=== PATIENT | female | born 2000 | race Caucasian/White ===

== ENCOUNTER 2024-01-05 16:38 | Emergency (ER) | payer MEDICAID, SELFPAY ==
[2024-01-05 16:40] VITALS: BP 145/79; PULSE 96; RESP 22; TEMP 37.1; O2SAT 98; BMI 43.2
--- NOTE | 2024-01-05 16:54 | EKG12_ITS ---
Test Reason : CP Blood Pressure : / mmHG Vent. Rate : 105 BPM Atrial Rate : 105 BPM P-R Int : 128 ms QRS Dur : 088 ms QT Int : 328 ms P-R-T Axes : 029 045 027 degrees QTc Int : 433 ms Sinus tachycardia Otherwise normal ECG Confirmed by SARAH ROJAS, DESIRAE ([id number]), offline editor JOSIAH RODRIGUEZ ([id number]) on 01/06/2024 2:12:52 PM Referred By: Confirmed By:DESIRAE SMITH MD
--- NOTE | 2024-01-05 17:01 | EX.ED.DYSGE1 ---
HPI History of Present Illness Chief Complaint: Syncope Informant: patient Onset/Context/Timing Onset: Today Narrative Narrative: Patient presents secondary to chest pain and syncope. She states several hours ago she started getting some chest achiness. She was driving to work and about 10 minutes away when she felt the pain was getting worse. She states she started breathing rather quickly. She went to work and was able to park her car. She was talking to her and reportedly had a brief syncopal episode. She states she was breathing quickly and her hands felt cold. When she came to in the car she still had some chest pressure. She walked into work to talk to her boss but states with exertion she got worsened pain and became lightheaded. She was able to sit in a chair just inside the door and staff numbers called EMS. She states that she is adopted and does not know her family history. She has had some intermittent chest heaviness like this in the past but never had a syncopal episode with it. [facility] Medical History Asthma PCOS (polycystic ovarian syndrome) Type 2 diabetes mellitus Allergy/AdvReac Type Severity Reaction Status Date / Time No Known Allergies Allergy Verified 01/05/24 16:39 Social History Smoking Status: Never smoker ROS ROS ED Constitutional Constitutional ED: Denies chills or fever(s) ENT ENT ED: Denies rhinorrhea or sore throat Cardiovascular Cardiovascular: Reports chest pain; Denies palpitations Respiratory/Chest Respiratory/Chest: Reports dyspnea; Denies cough Gastrointestinal Gastrointestinal: Denies abdominal pain, nausea or vomiting Genitourinary Genitourinary ED: Denies dysuria Musculoskeletal Musculoskeletal: Denies back pain or extremity pain Integumentary Denies Abrasions or rash Neurologic Neurologic: Denies headache(s) or weakness Psychiatric Psychiatric: Denies anxiety or depression Allergic/Immunologic Allergic/Immunologic ED: Denies lip swelling or urticaria EXAM Physical Exam Const Vital Signs: 01/05/24 16:40 01/05/24 18:23 01/05/24 19:00 Temperature 98.8 F 97.5 F L Temperature Source Oral Oral Pulse Rate 96 94 89 Respiratory Rate 22 H 19 H 20 H Blood Pressure 145/79 H 113/73 107/88 H Blood Pressure Mean 101 86 94 Pulse Ox 98 98 97 Oxygen Delivery Method Room Air 01/05/24 20:00 Temperature Temperature Source Pulse Rate 92 Respiratory Rate 20 H Blood Pressure 119/83 H Blood Pressure Mean 95 Pulse Ox 95 Oxygen Delivery Method Positive well nourished and well developed General Appearance ED: well developed HEENT Reports moist mucous membranes Eyes EOMs intact bilaterally Chest Wall inspection of chest normal and palpation of chest normal Resp normal respiratory effort and clear to auscultation bilaterally Cardio regular rhythm Rate: other Other Details: Heart rate ranging from the mid 90s to low 100s during my exam. 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 IV line initiated. Labwork obtained to evaluate for leukocytosis, anemia, and electrolyte derangement. EKG obtained to evaluate for cardiac arrhythmia/ischemia. Chest x-ray obtained to evaluate for acute lung pathology, cardiac size, or mediastinal abnormality. History & Record Review Discussion w/independent historian: Patient Lab Data Attestation: I reviewed the patient's lab results. Labs: Laboratory Results - last 24 hr 01/05/24 01/05/24 01/05/24 16:52 17:04 19:15 WBC 10.7 RBC 4.58 Hgb 9.9 L Hct 33.7 L MCV 73.6 L MCH 21.6 L MCHC 29.4 L RDW Std Deviation 41.9 RDW Coeff of Yvonne 15.8 H Plt Count 417 MPV 8.5 Immature Gran % (Auto) 0.400 Neut % (Auto) 72.4 H Lymph % (Auto) 21.9 Caroline % (Auto) 3.5 Eos % (Auto) 1.6 Baso % (Auto) 0.2 Absolute Neuts (auto) 7.8 H Absolute Lymphs (auto) 2.35 Nucleated RBC % 0 D-Dimer Quant (PE/DVT) < 0.27 L Sodium 137 Potassium 4.0 Chloride 108 H Carbon Dioxide 23.0 Anion Gap 6 BUN 12 Creatinine 0.78 Estim Creat Clear Calc 145.38 Est GFR (MDRD) Af Amer 118 Est GFR (MDRD) Non-Af 97 BUN/Creatinine Ratio 15.4 Glucose 171 H Calcium 9.6 Troponin I High Sens < 3 L < 3 L Serum , Qual NEGATIVE Radiography Chest X-Ray - ED: 1 View, Read by ED Physician, Normal, Heart, Lungs and Mediastinum Diagnostic Testing: Clinical Impression(s) from Imaging Studies Chest X-Ray 01/05/24 17:16 IMPRESSION: Questionable small focal right basilar infiltrate. Electronically Signed: Willi Blanchard at 18:06 EDT Reading Location ID and State: [id number] / [place] Tel [phone], Service support , EKG Initial EKG: Attestation: I personally reviewed and interpreted this EKG as follows: Interpretation: Sinus Tachycardia (Sinus tach at 105. No acute ischemia.) Treatment and Re-Evaluation :: CBC was normal white count with hemoglobin of 9.9. Platelet count is normal. Differential unremarkable. D-dimer is less than 0.27. Chemistry studies are unremarkable other than a glucose of 171. Initial troponin is less than 3 with 2-hour repeat troponin also less than 3. test negative. Portable chest x-ray per my interpretation reveals no acute abnormalities. Radiology interpretation is reviewed. They question whether she may have a small right basilar infiltrate. Patient has no cough, congestion, or symptoms consistent with pneumonia. EKG is sinus rhythm with no evidence of ischemia. Patient has not had any evidence of arrhythmia on the monitor. From her description, I do believe she was hyperventilating and had a brief syncopal episode. She does report a known history of anemia and I did encourage her to follow-up with her doctor to make sure this is stable. Patient and family at bedside are comfortable with discharge. Return instructions given. Discharge Plan Triage Chief Complaint: Syncope ED Provider: Angy Mahmood Dx/Rx/DC Orders Clinical Impression: Syncope Instructions: Anemia, ED Fainting, Uncertain Cause Primary Care Provider: PATIRCIA BALTAZAR Referrals: PATRICIA BALTAZAR [Other] - 1-2 Weeks Print Language: Latvian Disposition Disposition: Home, Self Care
[2024-01-05] MEDS: 0.9% Normal Saline (1000mL) 1,000 ML 150 ML IV (17:03)
[2024-01-05 17:10] LABS: Absolute Lymphocyte Count 2.35 X10^3/uL (0.83-4.51); Absolute Neutrophil Count 7.8 X10^3/uL (2.0-7.7); Basophil# 0.02 X10^3/uL; Basophil% 0.2 % (0-1); Eosinophil# 0.17 X10^3/uL; Eosinophils% 1.6 % (0-5); Hematocrit 33.7 % (37-47); Hemoglobin 9.9 g/dL (12.0-15.0); Lymphocyte # 2.35 X10^3/ul (0.83-4.51); Lymphocyte % 21.9 % (19-41); Mean Corp Hgb Conc 29.4 g/dL (32-36); Mean Corpuscular Hgb 21.6 pg (27.0-32.0); Mean Corpuscular Volume 73.6 fL (81-99); Mean Platelet Vol. 8.5 fl (6.2-12.0); Monocyte# 0.38 X10^3/uL; Monocyte% 3.5 % (0-10); NRBC Flagged by Analyzer 0 % (0-5); Neutrophil # 7.78 X10^3/uL (2.7-7.7); Neutrophil % 72.4 % (47-70); Platelet Count 417 K/mm3 (150-450); RBC Distribution Width CV 15.8 % (11.6-14.6); RBC Distribution Width SD 41.9 fl (35.1-43.9); Red Blood Count 4.58 M/mm3 (4.2-5.4); White Blood Count 10.7 K/mm3 (4.4-11.0)
--- NOTE | 2024-01-05 17:16 | RAD_ITS ---
INDICATION: cp EXAMINATION/TECHNIQUE: X-RAY - XR Chest 1 View COMPARISON: FINDINGS: LINES/DEVICES: None. LUNGS: Questionable small focal right basilar infiltrate. No pneumothorax. MEDIASTINUM AND CARDIOVASCULAR STRUCTURES: Cardiac silhouette not enlarged. Central airways and mediastinal contour are unremarkable. BONES AND SOFT TISSUES: Unremarkable. RAD/Chest 1 View (Portable) IMPRESSION: Questionable small focal right basilar infiltrate. Electronically Signed: Willi Blanchard DO at 18:06 EDT Reading Location ID and State: [facility] / [place] Tel [phone], Service support ,
[2024-01-05 17:32] LABS: Anion Gap 6 (5-15); BUN 12 mg/dL (7-18); BUN/Creat Ratio 15.4 RATIO (10-20); Calcium,Total 9.6 mg/dL (8.5-10.1); Chloride 108 mmol/L (98-107); Creatinine, Serum 0.78 mg/dL (0.55-1.02); EST Glomerular Filtration Rate 97 mL/min (>60); Est Glom Filt Rate - Afr Amer 118 mL/min (>60); Estimated Creatinine Clearance 145.38 ml/min; Glucose 171 mg/dL (74-106); Internal QC Validated? YES +Cl - CLEAR BKGD; Pregnancy, Serum, hCG Quali. NEGATIVE Negative; Sodium Level 137 mmol/L (136-145); Troponin-I HS (w/2H Reflex) < 3 pg/mL (3.0-54.0)
[2024-01-05 17:33] LABS: D-Dimer Quantitative (DVT/PE) < 0.27 FEU/ug/m (0.27-0.49)
[2024-01-05 18:23] VITALS: BP 113/73; PULSE 94; RESP 19; TEMP 36.4; O2SAT 98
[2024-01-05 19:00] VITALS: BP 107/88; PULSE 89; RESP 20; O2SAT 97
[2024-01-05 19:03] LABS: Reflex Troponin-HS? (from REC) Y
[2024-01-05 20:00] VITALS: BP 119/83; PULSE 92; RESP 20; O2SAT 95
[2024-01-05 20:01] LABS: Troponin-I HS < 3 pg/mL (3.0-54.0)
[2024-01-05 20:48] VITALS: BP 113/73; PULSE 98; RESP 23; TEMP 37.1; O2SAT 97
== END 2024-01-05 20:50 | disposition home or self-care (01) ==
PROVIDERS: Emergency Provider Emergency Medicine; Visit Provider Emergency Medicine
DX: R55 Syncope and collapse (principal); E11.9 Type 2 diabetes mellitus without complications; J45.909 Unspecified asthma, uncomplicated
CPT/HCPCS: 71045; 80048; 84484; 84703; 85025; 85379; 93005; 99284

== ENCOUNTER 2024-04-06 09:29 | Emergency (ER) | payer MEDICAID, SELFPAY ==
[2024-04-06 09:31] VITALS: BP 130/97; PULSE 112; RESP 20; TEMP 35.8; O2SAT 100; BMI 42.5
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
[2024-04-06 11:21] VITALS: BP 119/86; PULSE 79; RESP 19; TEMP 36.7; O2SAT 98
== END 2024-04-06 11:21 | disposition home or self-care (01) ==
PROVIDERS: Emergency Provider Emergency Medicine; Visit Provider Emergency Medicine
DX: S16.1XXA Strain of muscle, fascia and tendon at neck level, initial encounter (principal); E11.9 Type 2 diabetes mellitus without complications; S29.011A Strain of muscle and tendon of front wall of thorax, initial encounter; S39.012A Strain of muscle, fascia and tendon of lower back, initial encounter; J45.909 Unspecified asthma, uncomplicated; V89.2XXA Person injured in unspecified motor-vehicle accident, traffic, initial encounter
CPT/HCPCS: 71046; 72040; 72100; 99282

== ENCOUNTER 2024-12-10 15:12 | Emergency (ER) | payer MEDICAID, SELFPAY ==
[2024-12-10 15:12] VITALS: BP 139/94; PULSE 86; RESP 18; TEMP 36.8; O2SAT 98; BMI 42.1
--- NOTE | 2024-12-10 15:18 | EX.ED.DYSGE1 ---
HPI History of Present Illness Chief Complaint: Abd Pain [facility] Medical History Asthma PCOS (polycystic ovarian syndrome) Type 2 diabetes mellitus Home Medications ?Medication ?Instructions ?Recorded ?Last Taken ?Type cyclobenzaprine 10 mg tablet 10 mg PO TID PRN Muscle Spasm #20 04/06/24 Unknown Rx TABLETS ondansetron 4 mg disintegrating 4 mg PO Q8H PRN PRN Nausea #10 tabs 12/10/24 Unknown Rx tablet Allergy/AdvReac Type Severity Reaction Status Date / Time No Known Allergies Allergy Verified 12/10/24 15:14 Social History Smoking Status: Never smoker EXAM Physical Exam Const Vital Signs: 12/10/24 15:12 Temperature 98.2 F Temperature Source Oral Pulse Rate 86 Respiratory Rate 18 Blood Pressure 139/94 H Blood Pressure Mean 109 Pulse Ox 98 Oxygen Delivery Method Room Air MDM MDM MDM Narrative Medical decision making narrative: HISTORY OF PRESENT ILLNESS: Chief complaint: Abdominal pain 24-year-old female with past medical history significant for type 2 diabetes, PCOS no significant past surgical history of the abdomen presents with abdominal pain. She notes nausea and generalized abdominal discomfort that started this morning. Associated call of work. Show she feels better now. She was going to urgent care for work excuse however they sent her here instead. Patient denies any current symptoms. Denies any nausea or abdominal pain. Notes this morning she had pain in her lower belly for approximate 1 hour. Denies syncope. Denies trouble urinating. Denies urinary frequency, urgency, hematuria. Denies diarrhea, constipation. Denies history of abdominal surgeries. Denies fevers. REVIEW OF SYSTEMS: Pertinent positives: Abdominal pain, nausea Pertinent negatives: Fever, urinary symptoms PHYSICAL EXAM: Nursing triage notes reviewed, Vital signs reviewed Constitutional: please see mdm HENT: MMM Eyes: Pupils equal round and reactive to light, Extraocular muscles intact Neck: No stridor, no JVD, full neck ROM Lungs: Clear to auscultation, No wheezing or rales. No increased work of breathing, no conversational dyspnea, no accessory muscle use, no nasal flaring. No respiratory distress noted Heart: Regular rate and rhythm, No murmurs, No rubs and No gallops, 2+ distal pulses (radial, femoral, posterior tibial) in all extremities Abdomen: Soft, there is no tenderness, rigidity, rebound or guarding, no obvious peritoneal signs, no palpable pulsatile abdominal masses, no auscultated abdominal bruit : No CVAT Extremities: No edema Neuro: No new focal neurological deficits, cranial nerves II through XII intact, 5/5 strength in all present extremities. Intact sensation to light touch in all present extremities, 2+ reflexes bilateral patella tendons. Skin: No rash or lesions noted MEDICAL DECISION MAKING: Chief Complaint: please see HPI External records reviewed: Reviewed prior imaging studies Factors affecting care: none Social determinants of health: Patient denies alcohol or illicit drug History obtained from others: none Consults: none MDM Narrative: The patient was initially hemodynamically stable, afebrile nontoxic-appearing. Exam unremarkable. No peritoneal signs. Patient is in no acute distress. I considered the following differential diagnosis: AAA, small bowel obstruction, abdominal perforation, appendicitis, pancreatitis, hepatobiliary pathology (acute cholecystitis), mesenteric ischemia, pathology (ie nephrolithiasis, pyelonephritis). I offered the patient labs and potentially imaging studies to further elucidate etiology of the patient's complaints. Patient was alert and orient x 3 and had capacity to make own medical decisions and chose to forego additional labs images at this time stating she has a doctor appointment on Friday, she does not feel any symptoms at this time and does not think it is warranted. Patient's exam and vitals are benign and I generally agree with her in this regard. She is discharged stable addition with close PCP follow-up. Strict return precaution were discussed. Zofran was prescribed and given here in the ED. The patient and/or family, caregivers express understanding. The patient and/or family, caregivers agrees with the plan. Shared decision making: I will have a discussion with the patient and or visitors regarding risk/benefits of further testing or admission. They will be made aware of of the risk/benefits inherent in this decision they will be given the opportunity to voice understanding. Total critical care time today provided was at least 0 minutes. This excludes separately billable procedures. Critical care time (if documented) is secondary to the patient having high probability of clinically significant/life threatening deterioration in the patient's condition which required my urgent intervention. Impression: 1. Abdominal pain 2. Nausea Dispo: Discharge home This note was generated with [employer] dictation software. It may contain incorrect words, spelling, and punctuation that were not noted in review of the chart prior to signing. Discharge Plan Triage Chief Complaint: Abd Pain ED Provider: Dionisio Haines Dx/Rx/DC Orders Instructions: ED Abdominal Pain Unkn Cause Fem, ED Vomiting (Adult) Prescriptions: New ondansetron 4 mg tablet,disintegrating 4 mg PO Q8H PRN PRN (Reason: Nausea) Qty: 10 0RF No Action cyclobenzaprine 10 mg tablet 10 mg PO TID PRN (Reason: Muscle Spasm) Qty: 20 0RF Stand Alone Forms: ED Work / School Excuse Primary Care Provider: Care Physician,No Primary Referrals: Chepe Rojas MD [Med Staff - Active Staff] - Activity Restrictions/Additional Instructions: No restriction Print Language: Lao Disposition Disposition: Home, Self Care
[2024-12-10] MEDS: Ondansetron ODT 4 MG Tablet PO (15:35)
[2024-12-10 15:36] VITALS: BP 139/94; PULSE 86; RESP 16; TEMP 36.8; O2SAT 98
== END 2024-12-10 15:41 | disposition home or self-care (01) ==
LOC: ED 15:38
PROVIDERS: Emergency Provider Emergency Medicine; Referring Provider Emergency Medicine; Visit Provider Emergency Medicine
DX: R10.9 Unspecified abdominal pain (principal); E11.9 Type 2 diabetes mellitus without complications; R11.0 Nausea; J45.909 Unspecified asthma, uncomplicated
CPT/HCPCS: 99282

== ENCOUNTER 2024-12-22 14:21 | Emergency (ER) | payer MEDICAID, SELFPAY ==
[2024-12-22 14:22] VITALS: BP 142/106; PULSE 110; RESP 20; TEMP 36.2; O2SAT 100; BMI 42.0
--- NOTE | 2024-12-22 15:09 | US_ITS ---
PROCEDURE: TRANSVAGINAL NON- 12/22/2024 REASON FOR EXAM: PELVIC PAIN TECHNIQUE: Transvaginal pelvic ultrasound. Color and spectral doppler analysis of the ovaries. COMPARISON: None. FINDINGS: Measurements: Uterus: 8.1 x 3.8 x 5.3 cm for volume of 84.9 mL Endometrial Thickness: 1.0 cm Right Ovary: 3.4 x 2.1 x 3.2 cm for volume of 11.6 mL Left Ovary: 2.9 x 1.6 x 2.6 cm for volume of 6.4 mL Uterus: Anteverted. Normal contour and myometrial echotexture. Nabothian cysts at the cervix. Endometrium: Slightly heterogeneous, with suggestion of hypoechoic and mobile contents on the cine images.. Right ovary: Normal size and echotexture. Left ovary: Normal size and echotexture. Other adnexal findings: None. Cul-de-sac: Minimal free fluid in the pelvis within normal limits. DOPPLER: Color Doppler: Normal color flow doppler signal at both ovaries. Spectral Doppler: Normal arterial inflow and venous outflow signal at both ovaries. US/Transvaginal Non- IMPRESSION: 1. Slightly heterogeneous appearance of the endometrial stripe, with suggestio n of mobile hypoechoic contents which could represent blood products or a polyp. Consider Gynecology referral. 2. Unremarkable sonographic evaluation of the ovaries. Reading Location: [id number]
--- NOTE | 2024-12-22 15:13 | ED.VIS.FEGU ---
HPI HPI - Female History of Present Illness Chief Complaint: Vag Bleeding Narrative Narrative: Chief complaint and HPI: Pelvic pain and vaginal bleeding. 24-year-old female with past medical history of PCOS and irregular menstruation presents for evaluation of vaginal bleeding and pelvic pain. Patient follows with [facility] in [place]. Patient states today she started having vaginal bleeding. States she thinks she may be on her menstrual cycle. She states approximately an hour ago she started to have pelvic cramping, worse on the left. Describes it as sharp. Has not taken anything for the pain. Patient states that for a while her menstrual cycles have been monthly however she has not had one since October. States she took a home test at the beginning of the month that was negative. She denies any fever, chills, shortness of breath, chest pain, nausea, vomiting, dysuria, diarrhea, constipation. Review of systems: See HPI Medications: As listed on the chart Allergies: As listed on the chart PFSH: Per chart Vital signs: As listed on the chart. Reviewed. Physical exam: Gen: A&O x3, NAD Head: Normocephalic, atraumatic Eyes: No sclera icterus, conjunctiva clear ENT: Moist mucous membranes Neck: Trachea midline, No JVD CV: RRR, no murmurs, no peripheral edema Resp: Lungs CTA BL, no w/r/c GI: Abd soft, non-distended, non-tender, no r/r/g : No CVA tenderness. Normal external genitalia. No lesions, masses, or rashes appreciated. + Vaginal bleeding with bleeding from cervical os. No discharge. Cervix is non-friable. No cervical motion tenderness appreciated. No sign of PID on examination. Musc: Full ROM, no deformity Skin: Warm, dry Neuro: Alert, oriented, grossly intact, sensation intact Psych: Cooperative, appropriate mood and affect [facility] Medical History Asthma PCOS (polycystic ovarian syndrome) Type 2 diabetes mellitus Home Medications ?Medication ?Instructions ?Recorded ?Last Taken ?Type cyclobenzaprine 10 mg tablet 10 mg PO TID PRN Muscle Spasm #20 04/06/24 Unknown Rx TABLETS ondansetron 4 mg disintegrating 4 mg PO Q8H PRN PRN Nausea #10 tabs 12/10/24 Unknown Rx tablet Allergy/AdvReac Type Severity Reaction Status Date / Time bee venom protein (honey Allergy Mild Swelling Verified 12/22/24 14:22 bee) (bee sting) Social History Smoking Status: Never smoker EXAM Physical Exam Const Vital Signs: 12/22/24 14:22 12/22/24 16:21 Temperature 97.2 F L Temperature Source Temporal Pulse Rate 110 H 83 Respiratory Rate 20 H 19 H Blood Pressure 142/106 H 133/77 H Blood Pressure Mean 118 95 Pulse Ox 100 98 Oxygen Delivery Method Room Air Room Air MDM MDM MDM Narrative Medical decision making narrative: 24-year-old female with past medical history of PCOS and irregular menstruation presents for evaluation of vaginal bleeding and pelvic pain. Patient has history of irregular menstrual cycles. Pain started approximately 1 hour ago in which she has not taken anything for it. Physical exam is unremarkable except for vaginal bleeding. Toradol and NS bolus ordered. Differential diagnosis includes but is not limited to dysmenorrhea, cyst rupture, anemia, , UTI, suspect less likely ovarian torsion. Labs ordered with pelvic ultrasound. CBC without leukocytosis. Patient has stable anemia which is uptrending. BMP unremarkable. UA positive for blood which is consistent with patient's vaginal bleeding. Positive with glucose which is consistent with her diabetes. Negative for UTI. Urine negative. Pelvic ultrasound shows slightly heterogeneous appearance of the endometrial stripe, with suggestion of mobile hypoechoic contacts which could represent blood products or polyp. Given patient is having vaginal bleeding suspect blood products. Ovaries unremarkable. Patient was updated of all of her results. She was told to follow-up with her [facility]. She states her pain has improved and is almost resolved. I suspect her symptoms are secondary to dysfunctional uterine bleeding as well as dysmenorrhagia. Tylenol and ibuprofen as needed for pain. She confirmed understanding the plan. Patient able to discharge home. Impression: 1. Dysfunctional uterine bleeding with history of PCOS 2. Dysmenorrhagia Lab Data Labs: Laboratory Results - last 24 hr 12/22/24 12/22/24 15:25 15:34 WBC 10.8 RBC 4.80 Hgb 11.2 L Hct 36.3 L MCV 75.6 L MCH 23.3 L MCHC 30.9 L RDW Std Deviation 41.6 RDW Coeff of Yvonne 15.4 H Plt Count 431 MPV 8.7 Immature Gran % (Auto) 0.600 Neut % (Auto) 63.2 Lymph % (Auto) 29.6 [place] % (Auto) 4.8 Eos % (Auto) 1.6 Baso % (Auto) 0.2 Absolute Neuts (auto) 6.8 Absolute Lymphs (auto) 3.19 Nucleated RBC % 0 Sodium 137 Potassium 3.9 Chloride 103 Carbon Dioxide 21.1 Anion Gap 13 BUN 7 Creatinine 0.53 L Estim Creat Clear Calc 208.59 Est GFR (MDRD) Non-Af 133 BUN/Creatinine Ratio 12.6 Glucose 119 H Calcium 9.7 Urine Color Yellow Urine Clarity Clear Urine pH 6.0 Ur Specific [place] 1.015 Urine Protein 15 H Urine Glucose (UA) 50 H Urine Ketones Negative Urine Occult Blood 250 H Urine Nitrite Negative Urine Bilirubin Negative Urine Urobilinogen Normal Ur Leukocyte Esterase 100 H Urine RBC 10-25 SEEN Urine WBC 0-5 SEEN Ur Squamous Epith Cells 0 SEEN Urine Bacteria RARE Urine Mucus 0 SEEN Urine Test Negative Radiography Diagnostic Testing: Clinical Impression(s) from Imaging Studies Transvaginal US 12/22/24 15:09 IMPRESSION: 1. Slightly heterogeneous appearance of the endometrial stripe, with suggestion of mobile hypoechoic contents which could represent blood products or a polyp. Consider Gynecology referral. 2. Unremarkable sonographic evaluation of the ovaries. Reading Location: [facility] Discharge Plan Triage Chief Complaint: Vag Bleeding ED Provider: Flqauito Baumann Dx/Rx/DC Orders Clinical Impression: Dysmenorrhea Instructions: ED Dysfunctional Uterine Bleeding, ED MENSTRUAL CRAMPING Prescriptions: No Action cyclobenzaprine 10 mg tablet 10 mg PO TID PRN (Reason: Muscle Spasm) Qty: 20 0RF ondansetron 4 mg tablet,disintegrating 4 mg PO Q8H PRN PRN (Reason: Nausea) Qty: 10 0RF Primary Care Provider: Care Physician,No Primary Referrals: Follow-up with your [facility] [Other] - 3-5 Days Care Physician,No Primary [Primary Care Provider] - 3-5 Days Activity Restrictions/Additional Instructions: Follow-up with your [facility] and your PCP. You received Toradol here in the emergency department. No ibuprofen for 8 hours after that okay for ibuprofen. Okay for Tylenol. Return back to the ED if symptoms change or worsen. Print Language: Kiswahili Disposition Disposition: Home, Self Care
[2024-12-22] MEDS: 0.9% Normal Saline (1000mL) 1,000 ML 999 ML IV (15:29)
[2024-12-22] MEDS: Ketorolac 30 MG/ML Syringe IV (15:29)
[2024-12-22 15:38] LABS: Mucous, Urine 0 SEEN /hpf (<or=2+); Squamous Epithelial Cells - UA 0 SEEN /hpf (5-10)
[2024-12-22 15:44] LABS: Absolute Lymphocyte Count 3.19 X10^3/uL (0.83-4.51); Absolute Neutrophil Count 6.8 X10^3/uL (2.0-7.7); Basophil# 0.02 X10^3/uL; Basophil% 0.2 % (0-1); Eosinophil# 0.17 X10^3/uL; Eosinophils% 1.6 % (0-5); Hematocrit 36.3 % (37-47); Hemoglobin 11.2 g/dL (12.0-15.0); Lymphocyte # 3.19 X10^3/ul (0.83-4.51); Lymphocyte % 29.6 % (19-41); Mean Corp Hgb Conc 30.9 g/dL (32-36); Mean Corpuscular Hgb 23.3 pg (27.0-32.0); Mean Corpuscular Volume 75.6 fL (81-99); Mean Platelet Vol. 8.7 fl (6.2-12.0); Monocyte# 0.52 X10^3/uL; Monocyte% 4.8 % (0-10); NRBC Flagged by Analyzer 0 % (0-5); Neutrophil # 6.83 X10^3/uL (2.7-7.7); Neutrophil % 63.2 % (47-70); Platelet Count 431 K/mm3 (150-450); RBC Distribution Width CV 15.4 % (11.6-14.6); RBC Distribution Width SD 41.6 fl (35.1-43.9); White Blood Count 10.8 K/mm3 (4.4-11.0)
[2024-12-22 16:00] LABS: Internal QC Validated? YES +Cl - CLEAR BKGD
[2024-12-22 16:00] LABS: Anion Gap 13 (5-15); BUN 7 mg/dL (4-19); BUN/Creat Ratio 12.6 RATIO (10-20); Calcium,Total 9.7 mg/dL (7.6-11.0); Carbon Dioxide 21.1 mmol/L (21.0-32.0); Chloride 103 mmol/L (98-108); Creatinine, Serum 0.53 mg/dL (0.70-1.20); EST Glomerular Filtration Rate 133 (>60); Estimated Creatinine Clearance 208.59 ml/min (50-250); Glucose 119 mg/dL (70-99); Potassium 3.9 mmol/L (3.3-5.1); Sodium Level 137 mmol/L (133-145)
[2024-12-22 16:01] LABS: Pregnancy, Urine Negative Negative; Record Kit Lot#,Urine Preg 947241
[2024-12-22 16:15] LABS: Color, Urine Yellow (Yellow); Glucose, Dipstick 50 mg/dl (Normal); Ketone-Dipstick Negative (Negative); Leukocyte Esterase-Dipstick 100 /ul (Negative); Nitrite-Dipstick Negative (Negative); Occult Blood-Urine 250 /ul (Negative); Protein-Dipstick 15 mg/dl (Negative); Specific Gravity, Urine 1.015 (1.002-1.030); Urine Bilirubin Dipstick Negative (Negative); Urine Clarity Clear (Clear); Urine Urobilinogen Normal (Normal)
[2024-12-22 16:21] VITALS: BP 133/77; PULSE 83; RESP 19; O2SAT 98
[2024-12-22 17:09] LABS: Red Blood Cells-Urine 10-25 SEEN /hpf (0-5)
[2024-12-22 17:10] LABS: Bacteria RARE /hpf (None Seen); White Blood Cells 0-5 SEEN /hpf (0-5)
[2024-12-22 18:00] VITALS: BP 139/78; PULSE 78; RESP 18; TEMP 36.6; O2SAT 98
== END 2024-12-22 18:11 | disposition home or self-care (01) ==
PROVIDERS: Emergency Provider Surgery; Referring Provider Surgery; Visit Provider Surgery
DX: N94.6 Dysmenorrhea, unspecified (principal); E11.9 Type 2 diabetes mellitus without complications; N93.8 Other specified abnormal uterine and vaginal bleeding
CPT/HCPCS: 76830; 80048; 81001; 81025; 85025; 93976; 96374; 99283; A4216